=== PATIENT | female | born 1955 | race Caucasian/White ===

== ENCOUNTER 2017-04-16 10:05 | Emergency (ER) | payer BC ==
[~2017-04-16] VITALS: Ht 157.5 cm; Wt 56.1 kg
[2017-04-16 10:07] VITALS: TEMP 36.9; Ht 157.5 cm; Wt 56.1 kg
[2017-04-16] MEDS ORDERED: TRAMADOL HCL 50 MG TAB PO STA (11:04)
--- NOTE | 2017-04-16 11:37 | DIAGNOSTIC IMAGING REPORT ---
RIGHT KNEE 3 VIEWS CLINICAL HISTORY: fall; R knee pain Right trauma. Pain. COMPARISON: None. DISCUSSION: The bones and joint spaces appear intact. There is no evidence of fracture, dislocation or bony disease. There is no evidence for soft tissue swelling. IMPRESSION: Negative study. Electronically signed by: Lazarus Manning M.D. 04/16/2017 11:35 AM Dictated Date/Time: 04/16/2017 11:35 AM
[2017-04-16] MEDS ORDERED: LEVO25TA5 PO (11:58)
[2017-04-16] MEDS ORDERED: FURO20TA PO (11:58)
[2017-04-16] MEDS ORDERED: RIFA200T2 PO (11:58)
[2017-04-16 12:18] VITALS: BP 110/70; PULSE 68; O2SAT 96
[2017-04-16] MEDS ORDERED: TRAM-10 PO (12:19)
--- NOTE | 2017-04-16 16:49 | EMERGENCY ROOM VISIT NOTE ---
ED Visit Note First contact with patient: 10:13 Chief Complaint: Right knee pain. History of Present Illness: Ms. Lowery is a 61-year-old white female who is brought into the ED via wheelchair complaining of cold a right knee pain. Historically patient denies any previous significant injuries or surgeries to the knee. Patient reports 2 days ago she was walking her dog and slipped and fell on wet grass onto her right knee. She reports she was able to get up without difficulty and continued to walk her dog. The next morning she awoke she noted mild swelling over the anterior portion of the knee and worsening pain. She reports for the last 2 days when she is walking she has the sensation that her knee is going to give out and she falls to the ground. She has been trying to protect the knee. She reports initially her pain was mild the day after the fall but has gradually increased in intensity. She describes her pain as a throbbing sensation. She rates her discomfort 10/10 with weightbearing or ambulation. She reports at rest she barely has discomfort but notices the pressure sensation due to the swelling. Her pain is nonradiating. She places her pain globally throughout the knee with prominence over the anterior aspect of the knee. Her pain also worsens when she flexes beyond 90 or the last few degrees of extension. She has not taken any medications for her pain prior to arrival at the hospital. Associated with her pain she has noted knee swelling. She denies any lightheaded or dizziness before her falls, striking her head at the time of the fall, loss of consciousness at the time of the fall, any signs of head injury since her initial fall, neck pain, back pain, abdominal pain, nausea/vomiting, decreased appetite, hip pain, thigh pain, lower leg pain, ankle pain, leg weakness/numbness/tingling. Review of Systems: As noted above in history of present illness. 8 body systems were reviewed and found to be negative as noted above. Past Medical History: Hypertension, bronchitis,, hypothyroidism, status post tonsillectomy, hysterectomy, removal of bilateral feet neuromas and cholecystectomy. Current Medications: Levothyroxine, Lasix, Rifaximin. Allergies to Medications: Lyrica. Social History: Patient is currently retired; she feels safe in her home environment; she denies tobacco use and admits to alcohol use. Physical Examination: Vital Signs: Date Time Temp Pulse Resp B/P (MAP) Pulse Ox O2 Delivery O2 Flow Rate FiO2 04/16/17 12:18 68 18 110/70 96 04/16/17 10:07 36.9 79 18 156/73 97 Room Air GENERAL: 61-year-old female in mild to moderate distress due to pain, nontoxic- appearing, afebrile and hemodynamically stable. NEUROLOGICAL: Awake, alert and oriented to person, place and time. Answering questions appropriately and following commands. Good hand eye coordination. No focal motor or sensory deficits. SKIN: Warm, dry and pink. Right Knee: Over the anterior aspect of the knee patient has a small 3-4 mm superficial abrasion over the inferior aspect of the patella without any signs of infection. HEENT: Atraumatic and normocephalic. RIGHT LOWER LEG: No gross bony deformity. No shortening or mouth patient. No tenderness over the hip, thigh, lower leg, ankle or foot. Globally tenderness over the entire knee. There is prepatellar swelling without erythema. There is tenderness over the bilateral joint lines, over the posterior knee predominately over the insertion of the hamstring muscle group, anterior knee over the patella, the patellar tendon and the tibial tuberosity. Because of her discomfort I was not able to dress her ligamentous structure to assess for laxity. Because of her decreased range of motion and pain I was not able to perform a Maite's test. With the knee stabilize she did have full range of motion in plantar flexion and dorsiflexion of the ankle and flexion and extension of all toes. There is no calf tenderness or cords. There is no dependent edema. Throughout the foot the skin was warm and pink and capillary refill is brisk. She is able to distinguish light sensations through all dermatomes of the feet. ED Course: Patient is assessed as noted above. Patient's medications were reviewed. Patient was given 50 mg of Ultram by mouth for pain and ice for pain and swelling. Right Knee X-Rays: Was read by myself and the radiologist showing no acute fractures or dislocations. No joint effusions. Patient was placed in a knee immobilizer and educated on Walker use. Patient was educated about today's findings and instructed on her treatment plan ; she verbalizes understanding and agreement with this plan. Clinical Impression: Right knee pain. Status post fall. Decision-Making: Initially my differential diagnosis I considered contusion, knee fracture, patellar dislocation, joint effusion, ligamentous injury, tendinous injury, muscle strain and other causes. Disposition: Patient discharged home in stable condition; prior to departure she was reassessed and subjectively reported she was feeling better and rated her discomfort 4/10. Plan: Comfort measures including rest, ice, elevation, knee immobilizer and walker use and use of Ultram and ibuprofen for pain were discussed with the patient. Patient was encouraged to follow-up with family physician for recheck in 5-6 days if no better and for possible referral to orthopedics. Patient was encouraged return the ED for worsening/uncontrolled pain, uncontrolled swelling, leg weakness/numbness/tingling or any new/concerning symptoms.
== END 2017-04-16 12:20 | disposition home or self-care (01) ==
LOC: C.EDB 10:07
DX: M25.561 Pain in right knee (principal); W01.0XXA Fall on same level from slipping, tripping and stumbling without subsequent striking against object, initial encounter; I10 Essential (primary) hypertension; E03.9 Hypothyroidism, unspecified; Z90.710 Acquired absence of both cervix and uterus; Z90.49 Acquired absence of other specified parts of digestive tract; Z98.890 Other specified postprocedural states; Z79.899 Other long term (current) drug therapy; Z88.8 Allergy status to other drugs, medicaments and biological substances